=== PATIENT | female | born 1945 | race Caucasian/White ===

== ENCOUNTER → 2016-03-28 | Outpatient (CLI) | payer OTHER, MEDICARE ==
--- NOTE | 2016-03-28 11:27 | DX ---
Chest, Two Views 1041 hours History: Pneumonia, J18.9. Comparison: May 2011 Findings: Cardiac silhouette is within normal range. Bilateral peribronchial thickening. Minimal line ar scarring suggested in the right costophrenic angle. Atherosclerotic aorta. No pneumonia, congestiv e heart failure, pleural effusion, or pneumothorax. Impression: 1. No definite pneumonia. 2. Probable bronchitis. 3. Probable minimal linear scarring in the right costophrenic angle. Recommend follow-up imaging in o ne to 4 weeks.
== END ==
LOC: FLAB 10:45
PROVIDERS: ATTEND Internal Medicine
DX: J98.4 Other disorders of lung (principal); Z78.9 Other specified health status; J18.9 Pneumonia, unspecified organism; D64.9 Anemia, unspecified; J40 Bronchitis, not specified as acute or chronic
CPT/HCPCS: 71020; G0463; 36415-PO; 82607-90

== ENCOUNTER → 2016-11-03 | Outpatient (CLI) | payer OTHER, MEDICARE | LOC: FIMAGING 09:12 | PROVIDERS: ATTEND Internal Medicine | DX: Z12.31 Encounter for screening mammogram for malignant neoplasm of breast (principal) | CPT/HCPCS: G0202 ==

== ENCOUNTER → 2016-11-10 | Outpatient (CLI) | payer OTHER, MEDICARE | LOC: FIMAGING 12:02 | PROVIDERS: ATTEND Internal Medicine | DX: Z12.39 Encounter for other screening for malignant neoplasm of breast (principal); R92.8 Other abnormal and inconclusive findings on diagnostic imaging of breast | CPT/HCPCS: G0206 ==

== ENCOUNTER → 2017-05-10 | Outpatient (CLI) | payer OTHER, MEDICARE | LOC: FIMAGING 08:45 | PROVIDERS: ATTEND Internal Medicine | DX: R92.8 Other abnormal and inconclusive findings on diagnostic imaging of breast (principal) ==

== ENCOUNTER → 2017-11-05 | Outpatient (CLI) | payer OTHER, MEDICARE | LOC: FIMAGING 09:48 | PROVIDERS: ATTEND Internal Medicine | DX: Z12.31 Encounter for screening mammogram for malignant neoplasm of breast (principal) ==